=== PATIENT | male | born 1950 | race Caucasian/White ===

== ENCOUNTER 2019-02-22 00:14 | Emergency (ER) | payer MEDICARE, SELFPAY ==
[~2019-02-22] VITALS: Ht 177.8 cm; Wt 75.5 kg
[~2019-02-22 00:14] MED LIST: ALBU2.5V13 NEB; ALBU8.5H8 INH
[2019-02-22 00:53] LABS: BASOPHILS % (AUTO) 0.4 % (0-1); EOSINOPHILS # (AUTO) 0.1 X10'3 (0-0.9); EOSINOPHILS % (AUTO) 1.1 % (0-6); HEMATOCRIT 44.6 % (42.0-52.0); HEMOGLOBIN 15.2 g/dl (14.0-17.9); LYMPHOCYTES # (AUTO) 0.6 X10'3 (1.1-4.8); LYMPHOCYTES % (AUTO) 6.5 % (21-51); MEAN CORPUSCULAR HEMOGLOBIN 29.4 PG (27.0-31.0); MEAN CORPUSCULAR HGB CONC 34.1 g/dL (33.0-36.5); MEAN CORPUSCULAR VOLUME 86.2 FL (78-98); MEAN PLATELET VOLUME 8.9 FL (7.4-10.4); MONOCYTES # (AUTO) 0.7 X10'3 (0-0.9); MONOCYTES % (AUTO) 7.7 % (2-12); NEUTROPHILS # (AUTO) 7.4 X10'3 (1.8-7.7); NEUTROPHILS % (AUTO) 84.3 % (42-75); PLATELET COUNT 181 X10'3 (140-440); RED BLOOD COUNT 5.18 X10'6 (4.70-6.10); RED CELL DISTRIBUTION WIDTH 14.7 % (11.5-14.5); WHITE BLOOD COUNT 8.7 X10'3 (4.5-11.0)
[2019-02-22 00:54] LABS: CLARITY,URINE SLIGHTLY CLOUDY (Clear); COLOR,URINE AMBER (Yellow); GLUCOSE, URINE NEGATIVE (Neg); KETONES,URINE 40 mg/dl (Neg); LEUKOCYTE ESTERASE ,URINE NEGATIVE (Neg); NITRITES, URINE NEGATIVE (Neg); OCCULT BLOOD,URINE TRACE-INTACT (Neg); PROTEIN,URINE 30 mg/dl (Neg)
[2019-02-22 00:57] LABS: UA COLLECTION TYPE CLN CATCH MIDSTREAM
[2019-02-22 00:58] LABS: SQUAMOUS EPITHELIAL CELL,UR FEW /LPF (FEW)
[2019-02-22 00:59] LABS: BACTERIA,URINE FEW /HPF (Neg)
[2019-02-22 01:00] LABS: HYALINE CASTS 0-3 /LPF (NEGATIVE)
[2019-02-22 01:03] LABS: ALANINE AMINOTRANSFERASE 544 U/L (12-78); ALBUMIN 3.3 G/DL (3.4-5.0); ALBUMIN/GLOBULIN RATIO 0.7 (1.1-1.5); ALKALINE PHOSPHATASE 415 IU/L (46-116); ANION GAP 11 (8-16); ASPARTATE AMINO TRANSFERASE 257 U/L (10-37); BILIRUBIN,TOTAL 7.8 MG/DL (0.1-1.0); BLOOD UREA NITROGEN 14 MG/DL (7-18); BUN/CREATININE RATIO 14.3 (5.4-32.0); CALCIUM 9.5 MG/DL (8.5-10.1); CHLORIDE 98 MMOL/L (99-107); CREATININE 0.98 MG/DL (0.60-1.10); GLUCOSE 109 MG/DL (70-104); POTASSIUM 3.5 MMOL/L (3.5-5.1); SODIUM 133 MMOL/L (135-145); TOTAL CARBON DIOXIDE 24.4 MMOL/L (24-32); eGFR 77 ML/MIN
[2019-02-22 02:38] LABS: LIPASE 50 U/L (73-393)
[2019-02-22 04:35] VITALS: BP 137/75
== END 2019-02-22 04:37 | disposition home or self-care (01) ==
LOC: ER 00:15
DX: E80.6 Other disorders of bilirubin metabolism (principal); J45.909 Unspecified asthma, uncomplicated; F10.99 Alcohol use, unspecified with unspecified alcohol-induced disorder; Z88.0 Allergy status to penicillin; Z79.899 Other long term (current) drug therapy; Y90.9 Presence of alcohol in blood, level not specified
CPT/HCPCS: 36415; 76700; 80053; 81001; 83690; 85025; 87088; 99284

== ENCOUNTER 2019-02-27 00:08 | Emergency (ER) | payer MEDICARE ==
[~2019-02-27] VITALS: Ht 172.7 cm; Wt 75.0 kg
[2019-02-27 00:55] LABS: BASOPHILS % (AUTO) 0.6 % (0-1); EOSINOPHILS % (AUTO) 0.1 % (0-6); HEMATOCRIT 35.9 % (42.0-52.0); HEMOGLOBIN 12.5 g/dl (14.0-17.9); LYMPHOCYTES # (AUTO) 0.6 X10'3 (1.1-4.8); LYMPHOCYTES % (AUTO) 7.9 % (21-51); MEAN CORPUSCULAR HGB CONC 34.7 g/dL (33.0-36.5); MEAN CORPUSCULAR VOLUME 83.4 FL (78-98); MONOCYTES # (AUTO) 0.9 X10'3 (0-0.9); MONOCYTES % (AUTO) 11.2 % (2-12); NEUTROPHILS # (AUTO) 6.3 X10'3 (1.8-7.7); NEUTROPHILS % (AUTO) 80.2 % (42-75); RED CELL DISTRIBUTION WIDTH 15.5 % (11.5-14.5); WHITE BLOOD COUNT 7.8 X10'3 (4.5-11.0)
[2019-02-27 01:11] LABS: ALANINE AMINOTRANSFERASE 111 U/L (12-78); ALBUMIN 2.2 G/DL (3.4-5.0); ALKALINE PHOSPHATASE 456 IU/L (46-116); AMYLASE 33 U/L (25-115); ANION GAP 10 (8-16); BILIRUBIN,TOTAL 24.9 MG/DL (0.1-1.0); BLOOD UREA NITROGEN 23 MG/DL (7-18); CALCIUM 7.8 MG/DL (8.5-10.1); CHLORIDE 93 MMOL/L (99-107); LIPASE 156 U/L (73-393); SODIUM 126 MMOL/L (135-145); TOTAL CARBON DIOXIDE 22.8 MMOL/L (24-32)
[2019-02-27 01:22] LABS: ALBUMIN/GLOBULIN RATIO 0.6 (1.1-1.5); ASPARTATE AMINO TRANSFERASE 93 U/L (10-37); BUN/CREATININE RATIO 25.8 (5.4-32.0); CREATININE 0.89 MG/DL (0.60-1.10); GLUCOSE 116 MG/DL (70-104); POTASSIUM 3.8 MMOL/L (3.5-5.1); eGFR 86 ML/MIN
[2019-02-27 02:03] LABS: CLARITY,URINE CLEAR (Clear); GLUCOSE, URINE 100 mg/dl (Neg); KETONES,URINE 15 mg/dl (Neg); LEUKOCYTE ESTERASE ,URINE TRACE (Neg); OCCULT BLOOD,URINE LARGE (Neg); PH,URINE 6.5 (4.8-8.0); PROTEIN,URINE 100 mg/dl (Neg)
[2019-02-27 02:11] LABS: COLOR,URINE Amber (Yellow); NITRITES, URINE NEGATIVE (Neg); UA COLLECTION TYPE URINAL
[2019-02-27 02:13] LABS: BACTERIA,URINE FEW /HPF (Neg); RBC,URINE NONE SEEN /HPF (0-2); SQUAMOUS EPITHELIAL CELL,UR FEW /LPF (FEW); WBC,URINE 0-4 /HPF (0-4)
[2019-02-27] MEDS ORDERED: diphenhydrAMINE 25mg capsule PO ONE (03:00)
[2019-02-27 03:03] VITALS: BP 113/66
== END 2019-02-27 03:05 | disposition home or self-care (01) ==
LOC: ER 00:09
DX: R74.8 Abnormal levels of other serum enzymes (principal); R17 Unspecified jaundice; R11.0 Nausea; R10.9 Unspecified abdominal pain
CPT/HCPCS: 76700; 80053; 81001; 82150; 83690; 85025; 85610; 87088; 99284; Q0163